=== PATIENT | male | born 1955 | race Two or more races ===

== ENCOUNTER 2018-08-04 13:11 | Emergency (ER) | payer BC ==
[2018-08-04 13:23] VITALS: RESP 18
[2018-08-04] MEDS ORDERED: PROPARACAINE 0.5% OPHTH DROPS 15 ML BTL BOTH EYES STA (13:59)
--- NOTE | 2018-08-04 14:16 | ED ---
General Adult HPI - General Chief complaint: Skin/Abscess/Foreign Body Stated complaint: Vision, Poison [place], sent from [facility] Source: patient, family, RN notes reviewed Mode of arrival: ambulatory Limitations: no limitations - History of Present Illness Initial comments: Chief complaint and history of present illness this is a 62-year-old male with complaint of bilateral eye irritation. The patient was recently treated for poison cayla. Appears though the patient may have spread the poison cayla around both inner canthus of both eyes. He states he awakened the morning with his eyes irritated and closed shut. Complains of only mild foreign body sensation. He also has a rash on his forearms. He did take steroids for a while which got rid of most of the signs of poison cayla but once it stopped the rash returned. - Related Data Previous Rx's Medication Instructions Recorded predniSONE 40 mg PO DAILY #16 tab 08/04/18 Allergies Allergy/AdvReac Type Severity Reaction Status Date / Time No Known Allergies Allergy Verified 08/04/18 13:36 Review of Systems ROS Statement: Those systems with pertinent positive or pertinent negative responses have been documented in the HPI. Review of systems no other complaints other than irritated eyes and redness with what appears to be a local contact dermatitis possibly from poison cayla. Patient was sent emergency room from [facility] breast further evaluation. The wool broker will be contacted. Past medical problems significant for neck pain. Surgeries none. Family history father had leukemia. Patient denies any ALLERGIES she does smoke strongly encouraged stop drinks alcohol socially. ROS Other: All systems not noted in ROS Statement are negative. Past Medical History Past Medical History: No Reported History Past Surgical History: Hernia Repair Past Psychological History: No Psychological Hx Reported Smoking Status: Current every day smoker Past Alcohol Use History: Occasional Past Drug Use History: None Reported General Exam - General Exam Comments Initial Comments: General: The patient is awake and alert, here because her redness and irritation around both eyes. Vital signs temp 97.0 pulse 85 respiratory rate 18 pulse ox 90% room air blood pressure 139/72 Eye: Pupils are equal, round and reactive to light, extra-ocular movements are intact ; conjunctiva and bilateral conjunctiva are mildly injected. Corneas appear to be clear. No foreign bodies noted on ophthalmologic examination. Dermatitis noted around the eyes lower lids and inner aspects of the soft tissue. Eyes were stained with floor seen after being numbed with proparacaine. No evidence of any corneal irritation, no ulcers. 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 He does work in [employer]. He does have evidence of a contact type dermatitis to the forearms, suspect cysts of poison cayla. Limitations: no limitations Course Vital Signs 08/04/18 13:21 Temperature 97 F L Pulse Rate 85 Respiratory 18 Rate Blood Pressure 139/72 O2 Sat by Pulse 99 Oximetry Medical Decision Making - Medical Decision Making Patient is here because of irritation around both eyes, possible poison cayla irritation. Visual acuity 20/25 with glasses. I examined with ophthalmoscope and slit lamp. No evidence of any corneal ulcers, abrasions or dendritic pattern. I discussed the case with on-call wool broker Dr. Yinka Moulton. He recommends Maxitrol ophthalmic ointment to be placed on the skin irritation around the eye and small amount in the eye for comfort. Patient will be given the wool broker number to follow-up with it is not getting improvement over the next several days to week. Disposition Clinical Impression: Contact dermatitis Disposition: HOME SELF-CARE Condition: Fair Instructions: Poison [place] (ED) Additional Instructions: Apply Maxitrol to the rash around her eyelids and into each eye as directed. If not improving call follow-up with Dr. Moulton. Prescriptions: predniSONE 40 mg PO DAILY #16 tab Is patient prescribed a controlled substance at d/c from ED?: No Referrals: None,Stated [Primary Care Provider] - 1-2 days Time of Disposition: 14:57
[2018-08-04 15:11] VITALS: BP 135/93; PULSE 53; TEMP 96.8
[2018-08-04] MEDS ORDERED: NEOMYCIN-POLYMYXIN-DEXAMETH OINT 3.5 GM TUBE BOTH EYES SCH (15:15)
== END 2018-08-04 15:23 | disposition home or self-care (01) ==
LOC: EC 13:11
DX: L25.9 Unspecified contact dermatitis, unspecified cause (principal); L30.1 Dyshidrosis [pompholyx]; F17.200 Nicotine dependence, unspecified, uncomplicated
CPT/HCPCS: 99283

== ENCOUNTER 2024-02-12 11:00 | Outpatient (CLI) | payer BC ==
--- NOTE | 2024-02-13 23:06 | P.PCN ---
Date of Procedure: 02/12/24 Operative Findings: Home sleep study testing Date of services 02/12/2024 Pertinent history This is a 68-year-old male patient who has been suspected to have obstructive sleep apnea. The patient accordingly was referred to the home sleep study. The patient has moderate pulm hypertension and valvular heart disease with mitral regurgitation. Patient has COPD without significant obstruction on recent pulmonary function test. He has history of snoring, and has been concerned to have obstructive sleep apnea and based on that the home sleep study was ordered. Pertinent physical findings Body mass index is 30 Patient has a height of 5 feet and 10 inches and a weight of 210 pounds Technical description This is a type III home sleep study. [employer] Medical system was used to complete this home sleep study. Total recording duration was 7 hours and 26 minutes. The study started at 10:09 PM and ended at 5:35 AM. There was a total of 7 hours and 1 minute of flow evaluation 7 hours of oxygen saturation evaluation Results The respiratory evaluation showed a total of 15 obstructive apneas and 39 obstru ctive hypopneas and the resulting apnea-hypopnea index was 7.7, slightly worse in supine body position. Oxygenation analysis No significant desaturations were encountered. Baseline pulse ox was 96%, average pulse ox during sleep was 94% and the lowest pulse ox of 78%. Nevertheless the patient spent only 11 minutes of the sleep time below pulse ox of 89% Cardiac summary Average heart rate was 54 with a minimum heart rate of 40 and a maximal heart of 88 Assessment Mild obstructive sleep apnea with an AHI of 7.7, positional slightly worse in the supine body position. No significant nocturnal oxygen saturations Pulmonary hypertension, unlikely to be a group 3 pulmonary hypertension, please for look for alternative causes. Consider group 2 pulmonary hypertension especially with his underlying cardiac disease and valvular heart disease. Mitral valve regurgitation COPD, mild Plan This patient has a very mild sleep breathing disorder with an AHI of 7. I highly doubt that the patient's mild sleep breathing disorder is contributing to the patient's pulm hypertension. Severe obstructive sleep apnea has been associated with mild pulm hypertension. However, this patient's obstructive sleep apnea is mild and is not associated with any significant nocturnal oxygen saturations. In regards to her pulm hypertension, it is very unlikely that this is a group 3 pulm hypertension. Based on that, CPAP therapy is not recommended at this point in time unless the patient is experiencing significant sleep fragmentation and hypersomnia. If not, conservative measurements for treatment of mild obstructive sleep apnea is recommended.
== END 2024-02-13 11:30 | disposition home or self-care (01) ==
LOC: 3 N SLEEP 11:00
PROVIDERS: ATTEND Internal Medicine Critical Care Medicine
DX: G47.33 Obstructive sleep apnea (adult) (pediatric) (principal); I27.20 Pulmonary hypertension, unspecified; I34.0 Nonrheumatic mitral (valve) insufficiency; J44.9 Chronic obstructive pulmonary disease, unspecified; F17.200 Nicotine dependence, unspecified, uncomplicated